=== PATIENT | female | born 1965 | race African-American/Black ===

== ENCOUNTER 2018-09-16 08:10 | Inpatient (IN) | payer OTHER ==
[2018-09-16 08:33] VITALS: BMI 20.6
--- NOTE | 2018-09-16 08:34 | HP ---
COWS - Scale Resting Pulse: 0= [place] 80 or Below Sweatin= Chills/Flushing Restless Observation: 3= Extraneous Movement Pupil Size: 1= Pupils >than Normal Bone or Joint Aches: 2= Severe Diffuse Aches Runny Nose/ Eye Tearin= Runny Nose/Eyes GI Upset > 30mins: 2= Nausea/Diarrhea Tremor Observation: 2= Slight Tremor Visible Yawning Observation: 1= 1-2x During Session Anxiety or Irritability: 2=Irritable/Anxious Goose Flesh Skin: 0=Smooth Skin COWS Score: 16 CIWA Score - Admission Criteria [facility] Guidelines: Admission for Medically Managed Detox: Requires at least one of the followin. CIWA greater than 12 2. Seizures within the past 24 hours 3. Delirium tremens within the past 24 hours 4. Hallucinations within the past 24 hours 5. Acute intervention needed for co occurring medical disorder 6. Acute intervention needed for co occurring psychiatric disorder 7. Severe withdrawal that cannot be handled at a lower level of care (continued vomiting, continued diarrhea, abnormal vital signs) requiring intravenous medication and/or fluids 8. Admission ROS S - [facility] Chief Complaint: i need help to to stop using heroin,crack and marijuana Allergies/Adverse Reactions: Allergies Allergy/AdvReac Type Severity Reaction Status Date / Time No Known Allergies Allergy Verified 09/16/18 09:54 History of Present Illness: this 53 years old female with heroin,crack and marijuana dependence,seeking detox,withdrawal symptom, had previous admissions before last [facility] 01/30/15 to 02/04/15 nicotine dependence 10 cigarettes weight loss insomnia longest period of sobriety 7 years Exam Limitations: No Limitations - Ebola screening Have you traveled outside of the country in the last 21 days: No Have you had contact with anyone from an Ebola affected area: No Do you have a fever: No - Review of Systems Constitutional: Chills, Loss of Appetite, Malaise, Night Sweats, Changes in sleep, Weakness, Unintentional Wgt. Loss EENT: reports: Nose Congestion Respiratory: reports: No Symptoms reported Cardiac: reports: No Symptoms Reported GI: reports: Nausea, Vomiting, Abdominal cramping : reports: No Symptoms Reported Musculoskeletal: reports: Back Pain, Joint Pain, Muscle Pain, Joint Stiffness Neuro: reports: Headache, Tremors Endocrine: reports: No Symptoms Reported Hematology: reports: No Symptoms Reported Psychiatric: reports: No Sypmtoms Reported, Judgement Intact, Mood/Affect Appropiate, Orientated x3, Agitated, other (insmnia) Other Systems: Reviewed and Negative Patient History - Patient Medical History Hx Anemia: No Hx Asthma: No Hx Chronic Obstructive Pulmonary Disease (COPD): No Hx Cancer: No Hx Cardiac Disorders: No Hx Congestive Heart Failure: No Hx Hypertension: No Hx Hypercholesterolemia: No Hx Pacemaker: No HX Cerebrovascular Accident: No Hx Seizures: No Hx Dementia: No Hx Diabetes: No Hx Gastrointestinal Disorders: No Hx Liver Disease: No Hx Genitourinary Disorders: No Hx Sexually Transmitted Disorders: No Hx Renal Disease (ESRD): No Hx Thyroid Disease: No Hx Human Immunodeficiency Virus (HIV): No (last 08/27 negative) Hx Hepatitis C: No Hx Depression: No Hx Suicide Attempt: No Hx Bipolar Disorder: No Hx Schizophrenia: No Other Medical History: insomnia,no homicidal - Patient Surgical History Past Surgical History: Yes Hx Genitourinary Surgery: Yes Other Surgical History: ovarian cyst removal age 12; 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 History Hx Alcohol Use: No Hx Substance Use: Yes Substance Use Type: Cocaine, Heroin, Marijuana Hx Substance Use Treatment: Yes ([facility] 01/30/15 to 02/04/15) - Substances Abused Heroin Route: Inhalation Frequency: Daily Amount used: 7 bags Age of first use: 17 Date of Last Use: 09/15/18 Crack Route: Smoking Frequency: Daily Amount used: 60$ Age of first use: 34 Date of Last Use: 09/15/18 Marijuana/Hashish Route: Smoking Frequency: Daily Amount used: 100$ Age of first use: 13 Date of Last Use: 09/15/18 Family Disease History - Family Disease History Family Disease History: Diabetes: Mother, [place]: Grandparent, Mother, Other: Father (alcohol) Admission Physical Exam [facility] - Vital Signs Vital Signs: Vital Signs Temperature 98.0 F 09/16/18 08:29 Pulse Rate 93 H 09/16/18 08:29 Respiratory Rate 18 09/16/18 08:29 Blood Pressure 77/53 L 09/16/18 08:29 O2 Sat by Pulse Oximetry (%) - Physical General Appearance: Yes: Moderate Distress, Tremorous, Irritable, Sweating, Anxious HEENTM: Yes: Normal ENT Inspection, [place]YATT, Pharynx Normal Respiratory: Yes: Lungs Clear, Normal Breath Sounds, No Respiratory Distress Neck: Yes: Within Normal Limits, Supple, Trachea in good position Breast: Yes: Breast Exam Deferred Cardiology: Yes: Within Normal Limits, Regular Rhythm, Regular Rate, S1, S2 Abdominal: Yes: Within Normal Limits, Normal Bowel Sounds, Non Tender, Soft, Surgical Scar Genitourinary: Yes: Within Normal Limits Back: Yes: Muscle Spasm Musculoskeletal: Yes: full range of Motion, Back pain, Muscle Pain Extremities: Yes: Within Normal Limits, Normal Capillary Refill, Normal Inspection, Normal Range of Motion Neurological: Yes: support team member II-XII NML intact, Fully Oriented, Alert, Motor Strength 5/5 Integumentary: Yes: Dry Lymphatic: Yes: Within Normal Limits - Diagnostic (1) Opioid dependence with withdrawal Current Visit: Yes Status: Acute (2) Cocaine dependence Current Visit: No Status: Chronic (3) Marijuana dependence Current Visit: No Status: Chronic (4) Nicotine dependence Current Visit: No Status: Chronic (5) Dehydration Current Visit: Yes Status: Acute (6) Insomnia Current Visit: Yes Status: Acute (7) Weight loss Current Visit: Yes Status: Acute Cleared for Admission [facility] - Detox or Rehab [facility] Level of Care: Medically Managed Detox Regimen/Protocol: Methadone [facility] Breath Alcohol Content Breath Alcohol Content: 0 Inpatient Rehab Admission - Rehab Decision to Admit Inpatient rehab admission?: No
[2018-09-16] MEDS ORDERED: MAGNESIUM HYDROX 2400MG/30ML ORAL SUSPENSION 30 ML CUP PO PRN (08:45)
[2018-09-16] MEDS ORDERED: ACETAMINOPHEN 325 MG TABLET (FP) PO PRN ×2 (08:45)
[2018-09-16] MEDS ORDERED: cloNIDine HCL 0.1 MG TABLET PO PRN (08:45)
[2018-09-16] MEDS ORDERED: MAG HYDROX/AL HYDROX/SIMETH 30 ML UNIT-DOSE CUP PO PRN (08:45)
[2018-09-16] MEDS ORDERED: BISMUTH SUBSALICYLATE 524 MG/30 ML UD PO PRN (08:45)
[2018-09-16] MEDS ORDERED: MAGNESIUM CITRATE 300 ML BOTTLE PO PRN (08:45)
[2018-09-16] MEDS ORDERED: hydrOXYzine PAMOATE 25 MG CAPSULE (FP) PO PRN (08:45)
[2018-09-16] MEDS ORDERED: IBUPROFEN 400 MG TABLET (FP) PO PRN (08:45)
[2018-09-16] MEDS ORDERED: MENTHOL/PHENOL 1 EACH UD MM PRN (08:45)
[2018-09-16] MEDS ORDERED: METHADONE HCL 10 MG TABLET (FOR DETOX USE ONLY) PO ONE ×2 (10:00→23:00)
[2018-09-16] MEDS: clonazePAM 0.5 MG TABLET PO PRN (11:55)
[2018-09-16] MEDS: PRENATAL VITAMINS W/ FOLIC ACID TABLET (FP) PO SCH (11:55)
[2018-09-16] MEDS: NICOTINE 21 MG/24 HOURS TOPICAL PATCH TD SCH (11:56)
[2018-09-16] MEDS: THIAMINE HCL 100 MG TABLET (FP) PO SCH (22:13)
[2018-09-16] MEDS: QUEtiapine FUMARATE 50 MG TABLET PO SCH (22:13)
[2018-09-17] MEDS ORDERED: METHADONE HCL 5 MG TABLET (FOR DETOX USE ONLY) PO ONE (10:00)
[2018-09-17 10:20] LABS: HEMATOCRIT 29.6 % (32.4-45.2); HEMOGLOBIN 9.9 GM/dL (10.7-15.3); MCH 32.7 pg (25.7-33.7); MCHC 33.4 g/dl (32.0-36.0); MEAN CELL VOLUME 97.8 fl (80-96); MEAN PLT VOLUME 8.8 fl (7.5-11.1); PLATELET COUNT 266 K/MM3 (134-434); RBC 3.03 M/mm3 (3.60-5.2); RDW 14.5 % (11.6-15.6); WHITE BLOOD COUNT 5.8 K/mm3 (4.0-10.0)
[2018-09-17 10:29] LABS: ALBUMIN 3.2 g/dl (3.4-5.0); ALK PHOS 74 U/L (45-117); ANION GAP 6 MMOL/L (8-16); BILIRUBIN,TOTAL 0.1 mg/dL (0.2-1); BLOOD UREA NITROGEN 18 mg/dL (7-18); CHLORIDE 107 mmol/L (98-107); CO2 28 mmol/L (21-32); GLUCOSE,RANDOM 73 mg/dL (74-106); POTASSIUM 4.1 mmol/L (3.5-5.1); SGOT/AST 9 U/L (15-37); SGPT/ALT 18 U/L (13-61); SODIUM 140 mmol/L (136-145); TOT PROT 6.6 g/dl (6.4-8.2)
[2018-09-17] MEDS: PRENATAL VITAMINS W/ FOLIC ACID TABLET (FP) PO SCH (10:30)
[2018-09-17] MEDS: NICOTINE 21 MG/24 HOURS TOPICAL PATCH TD SCH (10:30)
--- NOTE | 2018-09-17 14:17 | PN ---
S COWS - Scale Resting Pulse: 0= [place] 80 or Below Sweatin= Chills/Flushing Restless Observation: 1= Difficult to Sit Still Pupil Size: 1= Pupils >than Normal Bone or Joint Aches: 2= Severe Diffuse Aches Runny Nose/ Eye Tearin= Nasal Congestion GI Upset > 30mins: 2= Nausea/Diarrhea Tremor Observation of Outstretched Hands: 1= Tremor [place], Not Seen Yawning Observation: 1= 1-2x During Session Anxiety or Irritability: 1=Feels Anxious/Irritable Goose Flesh Skin: 0=Smooth Skin COWS Score: 11 [facility] Progress Note (SOAP) Subjective: body ache stuffy nose joints pain tremor sweating Objective: 09/17/18 14:16 Vital Signs Temperature 98.3 F 09/17/18 13:38 Pulse Rate 76 09/17/18 13:38 Respiratory Rate 16 09/17/18 13:38 Blood Pressure 89/60 L 09/17/18 13:38 O2 Sat by Pulse Oximetry (%) Laboratory Last Values WBC 5.8 K/mm3 (4.0-10.0) 09/17/18 06:00 RBC 3.03 M/mm3 (3.60-5.2) L 09/17/18 06:00 Hgb 9.9 GM/dL (10.7-15.3) L 09/17/18 06:00 Hct 29.6 % (32.4-45.2) L D 09/17/18 06:00 MCV 97.8 fl (80-96) H 09/17/18 06:00 MCH 32.7 pg (25.7-33.7) 09/17/18 06:00 MCHC 33.4 g/dl (32.0-36.0) 09/17/18 06:00 RDW 14.5 % (11.6-15.6) 09/17/18 06:00 Plt Count 266 K/MM3 (134-434) 09/17/18 06:00 MPV 8.8 fl (7.5-11.1) D 09/17/18 06:00 Sodium 140 mmol/L (136-145) 09/17/18 06:00 Potassium 4.1 mmol/L (3.5-5.1) 09/17/18 06:00 Chloride 107 mmol/L (98-107) 09/17/18 06:00 Carbon Dioxide 28 mmol/L (21-32) 09/17/18 06:00 Anion Gap 6 MMOL/L (8-16) L 09/17/18 06:00 BUN 18 mg/dL (7-18) 09/17/18 06:00 Creatinine 1.0 mg/dL (0.55-1.3) 09/17/18 06:00 Creat Clearance w eGFR 57.78 (>60) 09/17/18 06:00 Random Glucose 73 mg/dL (74-106) L 09/17/18 06:00 Calcium 9.0 mg/dL (8.5-10.1) 09/17/18 06:00 Total Bilirubin 0.1 mg/dL (0.2-1) L 09/17/18 06:00 AST 9 U/L (15-37) L 09/17/18 06:00 ALT 18 U/L (13-61) 09/17/18 06:00 Alkaline Phosphatase 74 U/L (45-117) 09/17/18 06:00 Total Protein 6.6 g/dl (6.4-8.2) 09/17/18 06:00 Albumin 3.2 g/dl (3.4-5.0) L 09/17/18 06:00 lab noted 09/17/18 14:17 low iron Assessment: 09/17/18 14:17 withdrawal sx Plan: continue detox
[2018-09-17] MEDS: FERROUS SO4 325 MG TABLET (FP) PO SCH (15:23)
[2018-09-17] MEDS: clonazePAM 0.5 MG TABLET PO PRN (17:19)
[2018-09-17] MEDS: THIAMINE HCL 100 MG TABLET (FP) PO SCH (22:11)
[2018-09-17] MEDS: QUEtiapine FUMARATE 50 MG TABLET PO SCH (22:11)
[2018-09-17] MEDS: MELATONIN 5 MG TABLETS PO PRN (22:12)
[2018-09-17 23:45] LABS: URINE APPEARANCE SLCLOUDY; URINE BILIRUBIN NEGATIVE (<2.0 mg/dL); URINE COLOR YELLOW; URINE GLUCOSE (UA) NEGATIVE (NEGATIVE); URINE KETONE NEGATIVE (NEGATIVE); URINE LEUK ESTERASE 3+ (NEGATIVE); URINE NITRITE NEGATIVE (NEGATIVE); URINE PROTEIN NEGATIVE (NEGATIVE); URINE UROBILINOGEN NEGATIVE mg/dL (0.2-1.0)
[2018-09-17 23:50] LABS: EPI CELLS RARE /HPF (FEW); URINE BACTERIA RARE /hpf (NONE SEEN); URINE MUCUS RARE
[2018-09-18] MEDS ORDERED: METHADONE HCL 10 MG TABLET (FOR DETOX USE ONLY) PO ONE (10:00)
[2018-09-18] MEDS: FERROUS SO4 325 MG TABLET (FP) PO SCH (10:22)
[2018-09-18] MEDS: PRENATAL VITAMINS W/ FOLIC ACID TABLET (FP) PO SCH (10:22)
[2018-09-18] MEDS: NICOTINE 21 MG/24 HOURS TOPICAL PATCH TD SCH (10:22)
[2018-09-18] MEDS: clonazePAM 0.5 MG TABLET PO PRN (12:08)
[2018-09-18] MEDS: METHOCARBAMOL 500 MG TABLET PO PRN ×2 (12:08→19:14)
--- NOTE | 2018-09-18 14:11 | PN ---
S CIWA - CIWA Score Nausea/Vomitin-No Nausea/No Vomiting Muscle Tremors: 2 Anxiety: 1-Mildly Anxious Agitation: 2 Paroxysmal Sweats: 1-Minimal Palms Moist Orientation: 0-Oriented Tacttile Disturbances: 0-None Auditory Disturbances: 0-None Visual Disturbances: 0-None Headache: 1-Very Mild CIWA-Ar Total Score: 7 S Progress Note (SOAP) Subjective: feeling better less body ache mild tremor no sweating Objective: 09/18/18 14:09 Vital Signs Temperature 99.1 F 09/18/18 13:29 Pulse Rate 76 09/18/18 13:29 Respiratory Rate 18 09/18/18 13:29 Blood Pressure 88/57 L 09/18/18 13:29 O2 Sat by Pulse Oximetry (%) Laboratory Last Values WBC 5.8 K/mm3 (4.0-10.0) 09/17/18 06:00 RBC 3.03 M/mm3 (3.60-5.2) L 09/17/18 06:00 Hgb 9.9 GM/dL (10.7-15.3) L 09/17/18 06:00 Hct 29.6 % (32.4-45.2) L D 09/17/18 06:00 MCV 97.8 fl (80-96) H 09/17/18 06:00 MCH 32.7 pg (25.7-33.7) 09/17/18 06:00 MCHC 33.4 g/dl (32.0-36.0) 09/17/18 06:00 RDW 14.5 % (11.6-15.6) 09/17/18 06:00 Plt Count 266 K/MM3 (134-434) 09/17/18 06:00 MPV 8.8 fl (7.5-11.1) D 09/17/18 06:00 Sodium 140 mmol/L (136-145) 09/17/18 06:00 Potassium 4.1 mmol/L (3.5-5.1) 09/17/18 06:00 Chloride 107 mmol/L (98-107) 09/17/18 06:00 Carbon Dioxide 28 mmol/L (21-32) 09/17/18 06:00 Anion Gap 6 MMOL/L (8-16) L 09/17/18 06:00 BUN 18 mg/dL (7-18) 09/17/18 06:00 Creatinine 1.0 mg/dL (0.55-1.3) 09/17/18 06:00 Creat Clearance w eGFR 57.78 (>60) 09/17/18 06:00 Random Glucose 73 mg/dL (74-106) L 09/17/18 06:00 Calcium 9.0 mg/dL (8.5-10.1) 09/17/18 06:00 Total Bilirubin 0.1 mg/dL (0.2-1) L 09/17/18 06:00 AST 9 U/L (15-37) L 09/17/18 06:00 ALT 18 U/L (13-61) 09/17/18 06:00 Alkaline Phosphatase 74 U/L (45-117) 09/17/18 06:00 Total Protein 6.6 g/dl (6.4-8.2) 09/17/18 06:00 Albumin 3.2 g/dl (3.4-5.0) L 09/17/18 06:00 Urine Color Yellow 09/17/18 21:46 Urine Appearance Slcloudy 09/17/18 21:46 Urine pH 5.0 (5.0-8.0) 09/17/18 21:46 Ur Specific [place] 1.023 (1.010-1.035) 09/17/18 21:46 Urine Protein Negative (NEGATIVE) 09/17/18 21:46 Urine Glucose (UA) Negative (NEGATIVE) 09/17/18 21:46 Urine Ketones Negative (NEGATIVE) 09/17/18 21:46 Urine Blood Negative (NEGATIVE) 09/17/18 21:46 Urine Nitrite Negative (NEGATIVE) 09/17/18 21:46 Urine Bilirubin Negative (<2.0 mg/dL) 09/17/18 21:46 Urine Urobilinogen Negative mg/dL (0.2-1.0) 09/17/18 21:46 Ur Leukocyte Esterase 3+ (NEGATIVE) H 09/17/18 21:46 Urine WBC (Auto) 30 /hpf (3-5) 09/17/18 21:46 Urine RBC (Auto) 16 /hpf (0-3) 09/17/18 21:46 Ur Epithelial Cells Rare /HPF (FEW) 09/17/18 21:46 Urine Bacteria Rare /hpf (NONE SEEN) 09/17/18 21:46 Urine Mucus Rare 09/17/18 21:46 RPR Titer Nonreactive (NONREACTIVE) 09/17/18 06:00 lab noted uti Assessment: 09/18/18 14:10 withdrawal sx 09/18/18 14:10 uti Plan: continue detox bactrim ds
--- NOTE | 2018-09-18 14:14 | PN ---
[facility] COWS - Scale Resting Pulse: 0= [place] 80 or Below Sweatin= Chills/Flushing Restless Observation: 1= Difficult to Sit Still Pupil Size: 0= Normal to Room Light Bone or Joint Aches: 1= Mild Discomfort Runny Nose/ Eye Tearin= Nasal Congestion GI Upset > 30mins: 1= Stomach Cramp Tremor Observation of Outstretched Hands: 1= Tremor [place], Not Seen Yawning Observation: 0= None Anxiety or Irritability: 1=Feels Anxious/Irritable Goose Flesh Skin: 0=Smooth Skin COWS Score: 7
--- NOTE | 2018-09-18 14:18 | CONSULT ---
[facility] Psychiatric Consult - Data Date of interview: 09/18/18 Admission source: [facility] Identifying data: Readmission to [facility] for this 53 y/o AA female self- referred for detoxification treatment (alcohol, crack/cocaine, heroin, cannabis) . Interviewed on . Patient is , a mother of one, homeless, unemployed and supported on Public Assistance. Substance Abuse History: Confirmed by the patient in this interview. Smoking history: Current every day smoker. Have you smoked in the past 12 months: Yes. Aproximately how many cigarettes per day: 10. Hx Chewing Tobacco Use: No. Initiated information on smoking cessation: Yes. 'Breaking Loose' booklet given : 09/16/18. - Substance & Tx. History. Hx Alcohol Use: No. Hx Substance Use: Yes. Substance Use Type: Cocaine, Heroin, Marijuana. Hx Substance Use Treatment: Yes ([facility] 01/30/15 to 02/04/15). - Substances Abused. Heroin. Route: Inhalation. Frequency: Daily. Amount used: 7 bags. Age of first use: 17. Date of Last Use: 09/15/18. Crack. Route: Smoking. Frequency: Daily. Amount used: 60$. Age of first use: 34. Date of Last Use: 09/15/18. Marijuana/Hashish. Route: Smoking. Frequency: Daily. Amount used: 100$. Age of first use: 13. Date of Last Use: 09/15/18 Medical History: Patient endorses good general health. Distant history of + PPD (treated with INH). Psychiatric History: Patient denies history of psychiatric hospitalizations. Denies history of suicide attempts.Ms Loja indicates monthly contacts with a psychiatrist at [facility], in the [place]. Currently prescribed seroquel 50 mg/hs for insomnia (by [facility] physician). Physical/Sexual Abuse/Trauma History: Denies history of abuse. Additional Comment: Toxicology not available. Mental Status Exam - Mental Status Exam Alert and Oriented to: Time, Place, Person Cognitive Function: Good Patient Appearance: Well Groomed Mood: Nervous, Withdrawn Affect: Mood Congruent, Constricted Patient Behavior: Fatigued, Appropriate, Cooperative Speech Pattern: Clear, Appropriate Voice Loudness: Normal Thought Process: Intact, Goal Oriented Thought Disorder: Not Present Hallucinations: Denies Suicidal Ideation: Denies Homicidal Ideation: Denies Insight/Judgement: Fair Sleep: Poorly, Difficulty falling asleep Appetite: Fair Muscle strength/Tone: Normal Gait/Station: Normal Psychiatric Findings - Problem List ([place] 1, 2,3) (1) Opioid dependence with withdrawal Current Visit: Yes Status: Acute (2) Cocaine dependence Current Visit: Yes Status: Chronic (3) Marijuana dependence Current Visit: Yes Status: Chronic (4) Nicotine dependence Current Visit: Yes Status: Chronic (5) Insomnia Current Visit: Yes Status: Chronic (6) Substance induced mood disorder Current Visit: Yes Status: Suspected - Initial Treatment Plan Initial Treatment Plan: Psychoeducation. Sleep hygiene. Detocification. Support. Relapse prevention : discussed with the patient. AA/NA meetings. Seroquel 50 mg po hs. Ordered. Side effects/benefits discussed with patient. Ms Loja is in agreement with this plan of care. Consent (verbal) granted to MD. Augustine.
[2018-09-18] MEDS: THIAMINE HCL 100 MG TABLET (FP) PO SCH (21:31)
[2018-09-18] MEDS: QUEtiapine FUMARATE 50 MG TABLET PO SCH (21:31)
[2018-09-18] MEDS: MELATONIN 5 MG TABLETS PO PRN (21:32)
[2018-09-18] MEDS ORDERED: SULFAMETHOXAZOLE/TRIMETHOPRIM 800MG/160MG D.S. TABLET PO SCH (22:00)
[2018-09-19] MEDS ORDERED: METHADONE HCL 5 MG TABLET (FOR DETOX USE ONLY) PO ONE (06:00)
[2018-09-19 06:35] VITALS: BP 84/57; PULSE 72; TEMP 97.2
--- NOTE | 2018-09-19 19:32 | DS ---
[facility] Detox Discharge Summary Admission Date: 09/16/18 Discharge Date: 09/19/18 - History Present History: Cannabis Dependence, Cocaine Dependence, Opioid Dependence Additional Comments: PATIENT GOING TO [facility] ([place], [place]) FOR AFTERCARE. PATIENT WAS DISCHARGED FROM DETOX UNIT IN STABLE MEDICAL CONDITION. Pertinent Past History: Nicotine Dependence, Insomnia, Dehydration, Weight Loss. - Physical Exam Results Vital Signs: Vital Signs Temperature 97.2 F L 09/19/18 06:34 Pulse Rate 72 09/19/18 06:34 Respiratory Rate 16 09/19/18 06:34 Blood Pressure 84/57 L 09/19/18 06:34 O2 Sat by Pulse Oximetry (%) Pertinent Admission Physical Exam Findings: WITHDRAWAL SYMPTOMS. Laboratory Tests 09/17/18 09/17/18 09/17/18 06:00 06:00 06:00 WBC 5.8 RBC 3.03 L Hgb 9.9 L Hct 29.6 L D MCV 97.8 H MCH 32.7 MCHC 33.4 RDW 14.5 Plt Count 266 MPV 8.8 D Sodium 140 Potassium 4.1 Chloride 107 Carbon Dioxide 28 Anion Gap 6 L BUN 18 Creatinine 1.0 Creat Clearance w eGFR 57.78 Random Glucose 73 L Calcium 9.0 Total Bilirubin 0.1 L AST 9 L ALT 18 Alkaline Phosphatase 74 Total Protein 6.6 Albumin 3.2 L Urine Color Urine Appearance Urine pH Ur Specific [place] Urine Protein Urine Glucose (UA) Urine Ketones Urine Blood Urine Nitrite Urine Bilirubin Urine Urobilinogen Ur Leukocyte Esterase Urine WBC (Auto) Urine RBC (Auto) Ur Epithelial Cells Urine Bacteria Urine Mucus RPR Titer Nonreactive 09/17/18 21:46 WBC RBC Hgb Hct MCV MCH MCHC RDW Plt Count MPV Sodium Potassium Chloride Carbon Dioxide Anion Gap BUN Creatinine Creat Clearance w eGFR Random Glucose Calcium Total Bilirubin AST ALT Alkaline Phosphatase Total Protein Albumin Urine Color Yellow Urine Appearance Slcloudy Urine pH 5.0 Ur Specific [place] 1.023 Urine Protein Negative Urine Glucose (UA) Negative Urine Ketones Negative Urine Blood Negative Urine Nitrite Negative Urine Bilirubin Negative Urine Urobilinogen Negative Ur Leukocyte Esterase 3+ H Urine WBC (Auto) 30 Urine RBC (Auto) 16 Ur Epithelial Cells Rare Urine Bacteria Rare Urine Mucus Rare RPR Titer LABS NOTED. - Treatment Hospital Course: Detox Protocol Followed, Detoxed Safely, Responded well, Discharged Condition Good, Rehab Referral Accepted Patient has Accepted a Rehab Referral to: [facility] ([place], [place]). - Medication Discharge Medications: Ambulatory Orders Quetiapine Fumarate [Seroquel -] 50 mg PO HS 09/16/18 Naloxone HCl [Narcan] 4 mg NS ASDIR PRN 09/17/18 - Diagnosis (1) Dehydration Status: Acute (2) Opioid dependence with withdrawal Status: Acute (3) Weight loss Status: Acute (4) Cocaine dependence Status: Chronic Qualifiers: Substance use status: uncomplicated Qualified Code(s): F14.20 - Cocaine dependence, uncomplicated (5) Insomnia Status: Chronic Qualifiers: Insomnia type: unspecified Qualified Code(s): G47.00 - Insomnia, unspecified (6) Marijuana dependence Status: Chronic (7) Nicotine dependence Status: Chronic Qualifiers: Nicotine product type: cigarettes Substance use status: uncomplicated Qualified Code(s): F17.210 - Nicotine dependence, cigarettes, uncomplicated (8) Substance induced mood disorder Status: Suspected - AMA Did Patient Leave Against Medical Advice: No
== END 2018-09-19 08:45 | disposition home or self-care (01) | DRG 773 ==
LOC: YASAS 08:10 → Y3N 10:57
PROVIDERS: ADMIT Surgery; ATTEND Surgery
PROC: HZ2ZZZZ Detoxification Services for Substance Abuse Treatment (ICD-10-PCS; principal; 2018-09-16)
DX: F11.23 Opioid dependence with withdrawal (principal); F14.20 Cocaine dependence, uncomplicated; F12.20 Cannabis dependence, uncomplicated; F17.210 Nicotine dependence, cigarettes, uncomplicated; F19.24 Other psychoactive substance dependence with psychoactive substance-induced mood disorder; E86.0 Dehydration; G47.00 Insomnia, unspecified; N39.0 Urinary tract infection, site not specified; R63.4 Abnormal weight loss; Z68.20 Body mass index [BMI] 20.0-20.9, adult; Z86.11 Personal history of tuberculosis; Z59.0 Homelessness
CPT/HCPCS: 36415; 71045-TC-FY; 80053; 81003; 81015; 85027; 86593